=== PATIENT | male | born 1975 | race Hispanic/Latino ===

== ENCOUNTER 2019-05-21 05:39 | Day surgery (SDC) | payer OTHER ==
[~2019-05-21] VITALS: Ht 175.3 cm; Wt 86.8 kg
--- NOTE | ~2019-05-21 | OR ---
[facility] [address] [place], [place] [address] Draft DATE OF OPERATION: 05/21/2019 SURGEON: Román Dunn MD PREOPERATIVE DIAGNOSIS: Rupture anterior cruciate ligament graft, left knee. POSTOPERATIVE DIAGNOSIS: Rupture anterior cruciate ligament graft, left knee. PROCEDURE: Revision anterior cruciate ligament reconstruction, left knee with allograft. ANESTHESIA: General. SPECIMENS AND COMPLICATIONS: There were no specimens or complications. TOURNIQUET TIME: About 50 minutes. WHAT WAS DONE: The patient was taken to the operating room, placed on the operating table in supine position. After anesthesia was induced and the airway secured, the patient was positioned prepped and draped in a routine sterile fashion. The graft had already been thawed and was prepared on the back table. We put a tightrope on the femoral side and the tibial tightrope on the tibial side. The graft was then left in normal saline. The leg was then exsanguinated with an Esmarch bandage. Pneumatic tourniquet was inflated to 300 mmHg pressure. The arthroscope was inserted through the standard anterolateral portal. The anteromedial portal was created using transillumination and localization with a spinal needle. Diagnostic arthroscopy revealed an unremarkable suprapatellar pouch. The patellofemoral joint was unremarkable. The medial recess was unremarkable. The medial compartment showed remnants of medial meniscus, but there was no new tear. Intercondylar notch showed an intact ACL, but it was slightly lax. The lateral compartment was unremarkable as was the lateral recess. We returned to the intercondylar notch, removed the old ACL graft using a larger basket and the VAPR device. We then used a bur to widen it deep in the notchplasty. We then placed the femoral aimer through the lateral portal and introduced a FlipCutter through a posterolateral entry point. We then deployed a FlipCutter and drilled a 25 mm tunnel. PATIENT NAME: SANDRA STRONG OPERATIVE REPORT DATE OF : 75 REPORT #: [id number] PHYSICIAN: ROMÁN DUNN MD PCP: RICH WALLACE MD REPORT IS CONFIDENTIAL AND NOT TO BE RELEASED WITHOUT AUTHORIZATION [facility] [address] [place], [place] [address] Draft We passed a FiberStick down the tunnel, grabbed it, brought it out through the lateral portal and clipped it to itself. We then switched the scope to the lateral portal, placed the femoral aiming guide through the medial portal and placed it on the old ACL footprint. We then drilled the guide pin in place and then overdrilled it with a 10 mm cannulated drill. We then used the motorized shaver and the VAPR to remove all of the soft tissue around the tibial aperture. We then allowed the knee to completely drain. We reached up the tibial tunnel, grabbed the FiberStick, pulled it down the tibial tunnel. We were then able to deliver the graft and the femoral tightrope up the tibial tunnel across the knee and up the femoral tunnel. We then secured it on the femoral side by tightening down the tightrope and removing the guide FiberWire. We then tensioned it on the tibial side placing the button and then tensioning it with the tibial tightrope. Once we had a solid fixation, we cycled the knee. There was actually negative Samantha. We then re-tensioned the graft and augmented the fixation by tying a number of knots in the tightrope of leads as well as in the blue sutures on the tibial side. The wounds were gently irrigated, closed in standard fashion. A sterile dressing was applied, over which a bulky dressing and a T-scope brace were placed. The patient was awakened and taken to the recovery room where he arrived in stable condition. Counts were correct and antibiotic protocols were followed. Román Dunn MD WFB/MODL /[id number] Copies: ~ PATIENT NAME: SANDRA STRONG OPERATIVE REPORT DATE OF : 75 REPORT #: [id number] PHYSICIAN: ROMÁN DUNN MD PCP: RICH WALLACE MD REPORT IS CONFIDENTIAL AND NOT TO BE RELEASED WITHOUT AUTHORIZATION
[~2019-05-21 05:39] MED LIST: ADVIL LIQUI-GE200 MG PO; NORCO 10-325 T1 EACH PO
--- NOTE | 2019-05-21 06:12 | NUR ---
ADDED EKG TO ORDERS DUE TO H/O CARDIAC RYTHM PROBLEMS.
--- NOTE | 2019-05-21 08:49 | NUR ---
05/21/19 0849 Tania Nieves 0800-PATIENT ARRIVED TO PACU ON 10L MASK NONAROUSABLE. RR EVEN. ORAL AIRWAY IN PLACE. LEFT KNEE DRESSING CDI BRACE IN PLACE ELEVATED ON PILLOW AND ICE APPLIED. GOOD CAP REFILL, WARMTH AND PALPABLE LEFT PEDAL PULSE. GUARDS AT BEDSIDE.
--- NOTE | 2019-05-21 13:57 | EKG ---
[facility] [address] [facility] [place], [place] [address] Signed Normal sinus rhythm Normal ECG No previous ECGs available Confirmed by DAWSON LAM DO ([id number]) on 05/21/2019 1:57:42 PM Electronically Signed By: DAWSON LAM DO 05/21/19 1357 PATIENT NAME: SANDRA STRONG ALEXA Electrocardiogram DATE OF : 75 PHYSICIAN: DAWSON LAM DO REPORT #: [id number] REPORT IS CONFIDENTIAL AND NOT TO BE RELEASED WITHOUT AUTHORIZATION
== END 2019-05-21 10:35 | disposition home or self-care (01) ==
LOC: DS 05:39 → OPS 05:39 → DS 06:45 → OPS 06:45
PROVIDERS: Orthopaedic Surgery
PROC: 0MRP4KZ Replacement of Left Knee Bursa and Ligament with Nonautologous Tissue Substitute, Percutaneous Endoscopic Approach (ICD-10-PCS; principal; 2019-05-21 06:45)
DX: S83.512A Sprain of anterior cruciate ligament of left knee, initial encounter (principal); X58.XXXA Exposure to other specified factors, initial encounter
CPT/HCPCS: 64447; 64448; 73560; 76942; 93005; 93010; C1713; C1762; C1776; J0690; J1100; J1885; J2250; J2405; J2704; J2795; J3010; J7120